=== PATIENT | male | born 1970 | race Caucasian/White ===

== ENCOUNTER 2023-08-15 00:03 | Emergency (ER) | payer OTHER ==
[2023-08-15 00:08] VITALS: BP 129/92; PULSE 68; RESP 16; TEMP 98.6; BMI 29.8
[2023-08-15] MEDS ORDERED: CLINDAMYCIN HCL 150 MG CAPSULE (FP) ONE (00:38)
[2023-08-15] MEDS: CLINDAMYCIN HCL 150 MG CAPSULE (FP) PO ONE (00:50)
== END 2023-08-15 00:50 | disposition home or self-care (01) ==
LOC: FER 00:03
DX: R21 Rash and other nonspecific skin eruption (principal); L29.9 Pruritus, unspecified; L03.115 Cellulitis of right lower limb
CPT/HCPCS: 99283-25

== ENCOUNTER 2023-08-18 14:09 | Emergency (ER) | payer OTHER ==
[2023-08-18 14:32] VITALS: BP 131/84; PULSE 90; RESP 16; TEMP 98; BMI 29.8
[2023-08-18 15:42] LABS: HEMATOCRIT 47.2 % (35.4-49); HEMOGLOBIN 16.2 G/dL (11.7-16.9); MCH 31.1 pg (25.7-33.7); MCHC 34.2 g/dl (32.0-35.9); MEAN PLT VOLUME 8.4 fl (7.5-11.1); RBC 5.19 10^6/uL (4.00-5.60)
[2023-08-18 16:08] LABS: ALBUMIN 4.9 g/dl (3.4-5.0); BILIRUBIN,TOTAL 0.5 mg/dl (0.2-1); CALCIUM 10.4 mg/dl (8.5-10.1); CREATININE 1.1 mg/dl (0.6-1.3); POTASSIUM 4.2 mmol/L (3.5-5.1); TOT PROT 7.3 g/dl (6.4-8.2)
[2023-08-18] MEDS ORDERED: DALBAVANCIN HCL 500 MG VIAL (RESTRICTED TO ID ONLY) IVPB ONE (16:28)
[2023-08-18] MEDS ORDERED: diphenhydrAMINE HCL 50 MG CAPSULE ONE (16:40)
[2023-08-18] MEDS: diphenhydrAMINE HCL 50 MG CAPSULE PO ONE (16:48)
[2023-08-18] MEDS: DALBAVANCIN HCL 1,500 MG in DEXTROSE 5%-WATER - 500 ML IVPB ONE (16:48)
[2023-08-18 17:25] LABS: PLATELET ESTIMATE ADEQUATE
[2023-08-18 17:27] LABS: ERYTHROCYTE SEDIMENTATION RATE 2 mm/hr (0-20)
== END 2023-08-18 18:38 | disposition home or self-care (01) ==
LOC: FER 14:09
DX: R21 Rash and other nonspecific skin eruption (principal); L03.115 Cellulitis of right lower limb; L03.116 Cellulitis of left lower limb
CPT/HCPCS: 36415; 73701-TC-RT; 80053; 85027; 85651; 86140; 87040; 99285-25; J0875; Q9967

== ENCOUNTER 2023-08-21 10:27 | Emergency (ER) | payer OTHER ==
[2023-08-21 10:32] VITALS: BP 138/92; PULSE 63; RESP 18; TEMP 98; BMI 29.8
== END 2023-08-21 11:05 | disposition home or self-care (01) ==
LOC: FER 10:27
DX: L03.115 Cellulitis of right lower limb (principal); L03.116 Cellulitis of left lower limb; R21 Rash and other nonspecific skin eruption
CPT/HCPCS: 99283-25